=== PATIENT | female | born 1965 | race Caucasian/White ===

== ENCOUNTER 2019-11-21 15:40 | Observation (INO) | payer OTHER ==
[2019-11-21] MEDS ORDERED: PANTOPRAZOLE 40 MG VIAL IVP STA (16:12)
--- NOTE | 2019-11-21 16:13 | ED Physician Documentation ---
PD HPI ABD PAIN - Stated complaint Stated Complaint: FEMALE , DIZZINESS - Chief complaint Chief Complaint: Abd Pain - History obtained from History obtained from: Patient - History of Present Illness Timing - onset: Yesterday (54-year-old woman with history of hypertension and arthritis. She does take naproxen daily for arthritic pain. Since yesterday she has had episodic abdominal discomfort associated with nausea sweats and dizziness as well as dark and tarry stools. She has no history of ulcer disease and has never had an upper and Never had an EGD.) Review of Systems Ten Systems: 10 systems reviewed and negative Constitutional: reports: Sweats. denies: Fever, Chills Cardiac: denies: Chest pain / pressure, Palpitations Respiratory: denies: Dyspnea, Cough PD PAST MEDICAL HISTORY - Past Medical History Past Medical History: Yes Cardiovascular: Hypertension - Present Medications Home Medications: Ambulatory Orders Medication Instructions Recorded Confirmed Fluoxetine HCl 20 mg PO DAILY 11/21/19 11/21/19 Lisinopril/Hydrochlorothiazide 1 tab PO DAILY 11/21/19 11/21/19 [Lisinopril-Hctz 20-25 mg Tab] Naproxen 250 mg PO BID 11/21/19 11/21/19 Simvastatin 10 mg PO QPM 11/21/19 11/21/19 - Allergies Allergies/Adverse Reactions: Allergies Allergy/AdvReac Type Severity Reaction Status Date / Time No Known Drug Allergies Allergy Verified 11/21/19 16:03 - Living Situation Living Situation: reports: With spouse/s.o. - Social History Does the pt smoke?: No Does the pt have substance abuse?: No - Family History Family history: reports: Non contributory (Mom had ulcers) PD ED PE NORMAL - Vitals Vital signs reviewed: Yes - General General: Alert and oriented X 3, No acute distress - HEENT HEENT: PERRL, EOMI - Neck Neck: Supple, no meningeal sign, No bony TTP - Cardiac Cardiac: RRR, No murmur - Respiratory Respiratory: No respiratory distress, Clear bilaterally - Abdomen Abdomen: Soft, Non tender - Rectal Rectal: Other (Done with [employer] present and chaperoning, apparent me hammad from below sent for guaiac to the lab.) - Back Back: No CVA TTP, No spinal TTP - Derm Derm: Normal color, Warm and dry - Extremities Extremities: No edema, No calf tenderness / cord - Neuro Neuro: Alert and oriented X 3, No motor deficit, No sensory deficit, Normal speech Results - Vitals Vitals: Vital Signs - 24 hr 11/21/19 15:56 Temperature 36.5 C Heart Rate 91 Respiratory 16 Rate Blood Pressure 134/76 H O2 Saturation 97 Oxygen O2 Source Room air - Labs Labs: Microbiology 11/21/19 Unknown Occult Blood - Final Stool Laboratory Tests 11/21/19 11/21/19 11/21/19 16:15 16:15 16:15 WBC 13.7 H RBC 3.24 L Hgb 10.0 L Hct 30.4 L MCV 93.8 MCH 30.9 MCHC 32.9 RDW 12.6 Plt Count 315 MPV 10.2 Neut # (Auto) 8.7 H Lymph # (Auto) 4.2 H [place] # (Auto) 0.5 Eos # (Auto) 0.1 Baso # (Auto) 0.1 Absolute Nucleated RBC 0.00 Nucleated RBC % 0.0 PT 12.7 H INR 1.1 Sodium 133 L Potassium 3.3 L Chloride 98 L Carbon Dioxide 25 Anion Gap 10.0 BUN 29 H Creatinine 0.6 Estimated GFR (MDRD) 104 Glucose 107 H Calcium 9.3 Total Bilirubin 0.4 AST 16 ALT 20 Alkaline Phosphatase 50 Total Protein 7.1 Albumin 4.1 Globulin 3.0 Albumin/Globulin Ratio 1.4 Lipase 42 Blood Type Blood Type Recheck Antibody Screen 11/21/19 11/21/19 16:15 16:25 WBC RBC Hgb Hct MCV MCH MCHC RDW Plt Count MPV Neut # (Auto) Lymph # (Auto) [place] # (Auto) Eos # (Auto) Baso # (Auto) Absolute Nucleated RBC Nucleated RBC % PT INR Sodium Potassium Chloride Carbon Dioxide Anion Gap BUN Creatinine Estimated GFR (MDRD) Glucose Calcium Total Bilirubin AST ALT Alkaline Phosphatase Total Protein Albumin Globulin Albumin/Globulin Ratio Lipase Blood Type A POSITIVE Blood Type Recheck A POSITIVE Antibody Screen NEGATIVE PD MEDICAL DECISION MAKING - ED course ED course: This is a 54-year-old woman who takes naproxen every day for her arthritis and now presents with typical symptoms of a bleeding ulcer with melena. She received Protonix in the department. Her hemoglobin is 10, normal indices and elevated BUN suggest this is acute. Case was discussed by phone with the on- call surgeon, Dr. Santiago who will see in consult and a call was placed to the hospitalist for observation. Departure - Departure Disposition: ED Place in Observation Clinical Impression: Upper GI bleed Condition: Stable
[2019-11-21 16:39] LABS: BASOPHILS # (AUTO) 0.1 10^3/uL (0.0-0.1); BASOPHILS % (AUTO) 0.7 %; EOSINOPHILS # (AUTO) 0.1 10^3/uL (0.0-0.7); EOSINOPHILS % (AUTO) 0.5 %; LYMPHOCYTES # (AUTO) 4.2 10^3/uL (1.5-3.5); LYMPHOCYTES % (AUTO) 30.7 %; MEAN CORPUSCULAR HEMOGLOBIN 30.9 pg (27.0-31.0); MEAN CORPUSCULAR HGB CONC 32.9 g/dL (32.0-36.0); MEAN CORPUSCULAR VOLUME 93.8 fL (81.0-99.0); MEAN PLATELET VOLUME 10.2 fL (7.9-10.8); MONOCYTES # (AUTO) 0.5 10^3/uL (0.0-1.0); MONOCYTES % (AUTO) 3.9 %; NEUTROPHILS # (AUTO) 8.7 10^3/uL (1.5-6.6); NEUTROPHILS % (AUTO) 63.5 %; PLT - PLATELET COUNT 315 10^3/uL (130-450); RED BLOOD COUNT 3.24 10^6/uL (4.20-5.40); RED CELL DISTRIBUTION WIDTH 12.6 % (12.0-15.0); WHITE BLOOD COUNT 13.7 x10^3/uL (4.8-10.8)
[2019-11-21 16:45] LABS: INR 1.1 (0.8-1.2); PT - PROTHROMBIN TIME 12.7 secs (9.9-12.6)
[2019-11-21 16:54] LABS: ALBUMIN 4.1 g/dL (3.2-5.5); ALBUMIN/GLOBULIN RATIO 1.4 (1.0-2.2); BILIRUBIN,TOTAL 0.4 mg/dL (0.2-1.0); CALCIUM 9.3 mg/dL (8.5-10.3); CREATININE 0.6 mg/dL (0.4-1.0); TOTAL PROTEIN 7.1 g/dL (6.7-8.2)
[2019-11-21] MEDS ORDERED: NEOSTIGMINE 1 MG/1 ML 10 ML MDV IVP ONE (18:08)
[2019-11-21] MEDS ORDERED: PROPOFOL 200 MG/20 ML VIAL IVP ONE (18:08)
[2019-11-21] MEDS ORDERED: MIDAZOLAM 2 MG/2 ML VIAL IVP ONE (18:08)
[2019-11-21] MEDS ORDERED: SODIUM CHLORIDE FLUSH 0.9% 10 ML SYRINGE IVP PRN (20:18)
--- NOTE | 2019-11-21 20:37 | HISTORY & PHYSICAL EXAMINATION ---
Chief Complaint - Chief Complaint Chief Complaint: melena, dizziness History of Present Illness - Admitted From Admitted From:: [facility] - History Obtained From Records Reviewed: yes History obtained from: patient - History of Present Illness HPI Comment/Other: Patient is a 54 y/o female who presented to the ED with complains of dizziness and dark tarry stools. Her symptoms started yesterday with nausea and light- headedness which subsided after she had a bowel movement. Later in the evening it recurred and persisted for a while. She went to bed for the night. This morning she noticed her stool was tarry black. She denies a previous occurrence of this. She has arthritis in her hands and hips and has been using naproxen daily for years. She denied chest pain, dyspnea, fever or chills. In the ED work up included a CBC which showed a hemoglobin of 10. However in light of her symptoms, she was admitted for further evaluation. Dr Kaylie Santiago was consulted for a possible EGD. History - Past Medical History Cardiovascular: reports: Hypertension Respiratory: reports: None Neuro: reports: Motion sickness GI: reports: GI bleed : reports: None Psych: reports: Depression Musculoskeletal: reports: Osteoarthritis Derm: reports: None - Past Surgical History HEENT: reports: Cataracts Other past surgical history: dental extraction and implants. - Family & Social History Family History: Other family: Diabetes, Type 2 (partenal side) Living Situation: With spouse/s.o. Social History Notes: She smoked about 1.5 ppd for 17 yrs but quit in 1997. No illicit drug use - POLST Patient has POLST: No POLST Status: Full Code Meds/Allgy - Home Medications Home Medications: Ambulatory Orders Medication Instructions Recorded Confirmed Fluoxetine HCl 20 mg PO DAILY 11/21/19 11/21/19 Lisinopril/Hydrochlorothiazide 1 tab PO DAILY 11/21/19 11/21/19 [Lisinopril-Hctz 20-25 mg Tab] Naproxen 250 mg PO BID 11/21/19 11/21/19 Simvastatin 10 mg PO QPM 11/21/19 11/21/19 - Allergies Allergies/Adverse Reactions: Allergies Allergy/AdvReac Type Severity Reaction Status Date / Time No Known Drug Allergies Allergy Verified 11/21/19 16:03 Review of Systems - Constitutional Constitutional: denies: Fatigue, Fever, Chills, Weakness, Poor appetite - Eyes Eyes: denies: Pain, Vision loss - Ears, Nose & Throat Ears, Nose & Throat: denies: Ear pain, Sore throat - Cardiovascular Cariovascular: reports: Lightheadedness. denies: Chest pain, Edema, Syncope - Respiratory Respiratory: denies: Cough, Sputum production, Wheezing, SOB with exertion - Gastrointestinal Gastrointestinal: reports: Black stools, Nausea. denies: Abdominal pain, Abdominal distention, Diarrhea, Vomiting, Reflux/heartburn - Genitourinary Genitourinary: denies: Dysuria, Frequency, Urgency, Hematuria - Musculoskeletal Musculoskeletal: reports: Joint pain. denies: Muscle pain, Back pain - Integumentary Integumentary: denies: Rash, Pruritis, Dryness - Neurological Neurological: reports: Dizziness. denies: General weakness, Focal weakness, Headache - Psychiatric Psychiatric: reports: Depression. denies: Anxiety - Hematologic/Lymphatic Hematologic/Lymphatic: reports: Anemia. denies: Bruising, Petechiae, Blood clots Prior Level of Functionality: She is independent of activities of daily living. She lives with her . Exam - Vital Signs Vital Signs: Vital Signs x48h Temp Pulse Pulse Resp BP BP Pulse Ox 11/21/19 19:01 36.9 C 91 18 128/62 100 11/21/19 18:03 81 15 128/63 100 11/21/19 15:56 36.5 C 91 16 134/76 H 97 - Physical Exam General Appearance: positive: No acute distress, Alert Eyes Bilateral: positive: PERRL, EOMI ENT: positive: ENT inspection nml, No signs of dehydration Neck: positive: No JVD, Trachea midline Respiratory: positive: Chest non-tender, No respiratory distress, Breath sounds nml. negative: Wheezes, Rales, Rhonchi Cardiovascular: positive: Regular rate & rhythm Abdomen: positive: Non-tender, No organomegaly, Nml bowel sounds, No distention. negative: Guarding, Rebound Rectal: positive: Black stool Back: positive: Nml inspection Skin: positive: Color nml, No rash, Warm, Dry. negative: Diaphoresis Extremities: positive: Non-tender, Full ROM, Nml appearance, No pedal edema Neurologic/Psychiatric: positive: Oriented x3, Motor nml, Mood/affect nml Conclusion/Plan - Problem List (1) Upper GI bleed Conclusion/Plan: Likely 2/2 NSAID use Advised to stop using NSAIDS. NPO after midnight. Protonix 40mg IV bid Hgb was 10. Monitor CBC q8hrs X 3 Patient type and screend Will transfuse if hemoglobin drops less than 7 Or patient actively bleeding IV hydration. General Surgery (Dr Santiago) consulted for EGD (2) Hypokalemia Conclusion/Plan: Will replace and recheck Will check Mg in the am (3) Hypertension Conclusion/Plan: On lisinopril/ HCTZ. Currently normotensive Will resume once verified (4) Hyperlipidemia Conclusion/Plan: On simvastatin (5) Depression Conclusion/Plan: On fluoxetine - Lab Results Fish Bones: 11/21/19 16:15 11/21/19 16:15 Core Measures - Anticipated LOS I expect patient to be DC'd or transferred within 96 hours.: Yes - DVT/VTE - Prophylaxis VTE/DVT Device ordered at admit?: Yes VTE/DVT Prophylaxis med ordered at admit?: No
[2019-11-21] MEDS: PANTOPRAZOLE 40 MG VIAL IVP SCH (21:26)
[2019-11-21] MEDS: NS W/20 MEQ KCL 1,000 ML IV SCH (21:30)
[2019-11-22] MEDS: SODIUM CHLORIDE FLUSH 0.9% 10 ML SYRINGE IVP SCH ×3 (00:55→17:08)
[2019-11-22 05:21] LABS: BASOPHILS # (AUTO) 0.1 10^3/uL (0.0-0.1); BASOPHILS % (AUTO) 0.6 %; EOSINOPHILS # (AUTO) 0.2 10^3/uL (0.0-0.7); EOSINOPHILS % (AUTO) 1.9 %; HGB - HEMOGLOBIN 8.1 g/dL (12.0-16.0); LYMPHOCYTES # (AUTO) 3.7 10^3/uL (1.5-3.5); LYMPHOCYTES % (AUTO) 43.6 %; MEAN CORPUSCULAR HEMOGLOBIN 29.7 pg (27.0-31.0); MEAN CORPUSCULAR HGB CONC 31.5 g/dL (32.0-36.0); MEAN CORPUSCULAR VOLUME 94.1 fL (81.0-99.0); MEAN PLATELET VOLUME 10.3 fL (7.9-10.8); MONOCYTES # (AUTO) 0.5 10^3/uL (0.0-1.0); NEUTROPHILS # (AUTO) 4.1 10^3/uL (1.5-6.6); NEUTROPHILS % (AUTO) 47.5 %; PLT - PLATELET COUNT 250 10^3/uL (130-450); RED BLOOD COUNT 2.73 10^6/uL (4.20-5.40); RED CELL DISTRIBUTION WIDTH 12.8 % (12.0-15.0); WHITE BLOOD COUNT 8.6 x10^3/uL (4.8-10.8)
[2019-11-22 05:30] LABS: CALCIUM 8.5 mg/dL (8.5-10.3); CREATININE 0.6 mg/dL (0.4-1.0); MAGNESIUM 2.1 mg/dL (1.7-2.8)
[2019-11-22] MEDS: PANTOPRAZOLE 40 MG VIAL IVP SCH ×2 (09:34→21:54)
[2019-11-22] MEDS: NS W/20 MEQ KCL 1,000 ML IV SCH (10:21)
--- NOTE | 2019-11-22 11:07 | PHARMACY PROGRESS NOTE ---
- Best Possible Medication History Admit Date and Time: 11/21/191806 Processed by: Pharmacy Medication History completed: Yes Patient Interview: Completed Secondary Source(s): Physician records, Pharmacy records, Insurance records As the person ultimately responsible for medication therapy, providers are able to order a medication from an existing home medication list in [facility] via the "Reconcile Routine" prior to Confirmation of that medication by office support associate. Such practice is discouraged except when the physician, in their clinical judgment, deems that a medical need exists for a medication without regard to previous use.
--- NOTE | 2019-11-22 11:49 | CONSULTATION NOTE ---
Referring Provider Name of Referring Provider:: hospitalist Consult Date: 11/22/19 Chief Complaint - Chief Complaint Chief Complaint: UGIB History of Present Illness - History of Present Illness HPI Comment/Other: 54yo F with concern for UGIB due to dark tarry stools over past day as well as lightheadedness and pale appearance. She came in for evaluation and had a hg of 10 but this decreased to 8 on recheck. She remains HDS. Has long history of NSAID use. Never had previous issues with pain, reflux, or evidence of bleeds. History - Past Medical History Cardiovascular: reports: Hypertension Respiratory: reports: None Neuro: reports: Motion sickness GI: reports: GI bleed : reports: None Psych: reports: Depression Musculoskeletal: reports: Osteoarthritis Derm: reports: None - Past Surgical History HEENT: reports: Cataracts Other past surgical history: dental extraction and implants. - Family & Social History Family History: Other family: Diabetes, Type 2 (partenal side) Living Situation: With spouse/s.o. Social History Notes: She smoked about 1.5 ppd for 17 yrs but quit in 1997. No illicit drug use - POLST Patient has POLST: No POLST Status: Full Code Meds/Allgy - Home Medications Home Medications: Ambulatory Orders Medication Instructions Recorded Confirmed Fluoxetine HCl 20 mg PO DAILY 11/21/19 11/21/19 Lisinopril/Hydrochlorothiazide 1 tab PO DAILY 11/21/19 11/21/19 [Lisinopril-Hctz 20-25 mg Tab] Naproxen 250 mg PO BID 11/21/19 11/21/19 Simvastatin 10 mg PO QPM 11/21/19 11/21/19 - Allergies Allergies/Adverse Reactions: Allergies Allergy/AdvReac Type Severity Reaction Status Date / Time No Known Drug Allergies Allergy Verified 11/21/19 16:03 Exam - Vital Signs Reviewed Vital Signs: Yes Vital Signs: Vital Signs x48h Temp Pulse Resp BP Pulse Ox 11/22/19 08:00 36.8 C 81 18 120/58 L 98 11/22/19 04:19 36.4 C L 82 18 119/58 L 98 - Physical Exam Comments/Other: AAO, NAD EOMI, MMM unlabored RA soft, nt/nd MAEW Conclusion and Plan - Lab Results Microbiology Results 11/21/19 Unknown Stool Occult Blood - Final Laboratory Results 11/22/19 04:10: Sodium 137, Potassium 3.2 L, Chloride 103, Carbon Dioxide 28, Anion Gap 6.0, BUN 18, Creatinine 0.6, Estimated GFR (MDRD) 104, Glucose 100, Calcium 8.5, Magnesium 2.1 11/22/19 04:10: WBC 8.6, RBC 2.73 L, Hgb 8.1 L, Hct 25.7 L, MCV 94.1, MCH 29.7, MCHC 31.5 L, RDW 12.8, Plt Count 250, MPV 10.3, Neut # (Auto) 4.1, Lymph # (Auto) 3.7 H, [place] # (Auto) 0.5, Eos # (Auto) 0.2, Baso # (Auto) 0.1, Absolute Nucleated RBC 0.00, Nucleated RBC % 0.0 11/21/19 16:25: Blood Type A POSITIVE, Antibody Screen NEGATIVE 11/21/19 16:15: Blood Type Recheck A POSITIVE 11/21/19 16:15: Sodium 133 L, Potassium 3.3 L, Chloride 98 L, Carbon Dioxide 25, Anion Gap 10.0, BUN 29 H, Creatinine 0.6, Estimated GFR (MDRD) 104, Glucose 107 H, Calcium 9.3, Total Bilirubin 0.4, AST 16, ALT 20, Alkaline Phosphatase 50, Total Protein 7.1, Albumin 4.1, Globulin 3.0, Albumin/Globulin Ratio 1.4, Lipase 42 11/21/19 16:15: PT 12.7 H, INR 1.1 11/21/19 16:15: WBC 13.7 H, RBC 3.24 L, Hgb 10.0 L, Hct 30.4 L, MCV 93.8, MCH 30.9, MCHC 32.9, RDW 12.6, Plt Count 315, MPV 10.2, Neut # (Auto) 8.7 H, Lymph # (Auto) 4.2 H, [place] # (Auto) 0.5, Eos # (Auto) 0.1, Baso # (Auto) 0.1, Absolute Nucleated RBC 0.00, Nucleated RBC % 0.0 - Diagnosis Diagnosis: UGIB - Plan Plan: - diagnostic EGD, possibly therapeutic - all R/B/A discussed and pt wishes to proceed - stop or greatly decrease NSAID use
--- NOTE | 2019-11-22 12:11 | ANESTHESIA ---
Pre-Anesthesia VS, & Labs - Diagnosis Diagnosis UGIB - Procedure EGD Vital Signs: Temp Pulse Resp BP Pulse Ox 36.8 C 81 18 120/58 L 98 11/22/19 08:00 11/22/19 08:00 11/22/19 08:00 11/22/19 08:00 11/22/19 08:00 Height 5 ft 4 in Weight (kg) 93.5 kg Body Mass Index 35.4 - NPO >8 hours - Is Patient ?: No - Lab Results Current Lab Results: Laboratory Tests 11/22/19 04:10: Sodium 137, Potassium 3.2 L, Chloride 103, Carbon Dioxide 28, Anion Gap 6.0, BUN 18, Creatinine 0.6, Estimated GFR (MDRD) 104, Glucose 100, Calcium 8.5, Magnesium 2.1 11/22/19 04:10: WBC 8.6, RBC 2.73 L, Hgb 8.1 L, Hct 25.7 L, MCV 94.1, MCH 29.7, MCHC 31.5 L, RDW 12.8, Plt Count 250, MPV 10.3, Neut # (Auto) 4.1, Lymph # (Auto) 3.7 H, [place] # (Auto) 0.5, Eos # (Auto) 0.2, Baso # (Auto) 0.1, Absolute Nucleated RBC 0.00, Nucleated RBC % 0.0 11/21/19 16:25: Blood Type A POSITIVE, Antibody Screen NEGATIVE 11/21/19 16:15: Blood Type Recheck A POSITIVE 11/21/19 16:15: Sodium 133 L, Potassium 3.3 L, Chloride 98 L, Carbon Dioxide 25, Anion Gap 10.0, BUN 29 H, Creatinine 0.6, Estimated GFR (MDRD) 104, Glucose 107 H, Calcium 9.3, Total Bilirubin 0.4, AST 16, ALT 20, Alkaline Phosphatase 50, Total Protein 7.1, Albumin 4.1, Globulin 3.0, Albumin/Globulin Ratio 1.4, Lipase 42 11/21/19 16:15: PT 12.7 H, INR 1.1 11/21/19 16:15: WBC 13.7 H, RBC 3.24 L, Hgb 10.0 L, Hct 30.4 L, MCV 93.8, MCH 30.9, MCHC 32.9, RDW 12.6, Plt Count 315, MPV 10.2, Neut # (Auto) 8.7 H, Lymph # (Auto) 4.2 H, [place] # (Auto) 0.5, Eos # (Auto) 0.1, Baso # (Auto) 0.1, Absolute Nucleated RBC 0.00, Nucleated RBC % 0.0 Lab results reviewed: Yes Fish Bones: 11/22/19 04:10 11/22/19 04:10 Home Medications and Allergies Home Medications: Ambulatory Orders Fluoxetine HCl 20 mg PO DAILY 11/21/19 Lisinopril/Hydrochlorothiazide [Lisinopril-Hctz 20-25 mg Tab] 1 tab PO DAILY 11/21/19 Naproxen 250 mg PO BID 11/21/19 Simvastatin 10 mg PO QPM 11/21/19 Active Medications Potassium Chloride/Sodium Chloride (Normal Saline 0.9% W/20 Meq Kcl) 1,000 mls @ 100 mls/hr IV .Q10H [facility] Last Admin: 11/22/19 10:21 Dose: 100 mls/hr Pantoprazole Sodium (Protonix) 40 mg IVP BID [facility] Last Admin: 11/22/19 09:34 Dose: 40 mg Sodium Chloride (Normal Saline Flush 0.9%) 10 ml IVP PRN PRN PRN Reason: NEEDED PER PROVIDER ORDERS Last Admin: 11/21/19 21:26 Dose: 10 ml Sodium Chloride (Normal Saline Flush 0.9%) 10 ml IVP 0100,0900,1700 [facility] Last Admin: 11/22/19 08:48 Dose: Not Given Fluoxetine HCl 20 mg PO DAILY 11/21/19 Lisinopril/Hydrochlorothiazide [Lisinopril-Hctz 20-25 mg Tab] 1 tab PO DAILY 11/21/19 Naproxen 250 mg PO BID 11/21/19 Simvastatin 10 mg PO QPM 11/21/19 Allergies/Adverse Reactions: Allergies Allergy/AdvReac Type Severity Reaction Status Date / Time No Known Drug Allergies Allergy Verified 11/21/19 16:03 Anes History & Medical History - Anesthetic History Anesthesia Complications: reports: No previous complications Family history of Anesthesia Complications: Denies Family history of Malignant Hyperthermia: Denies - Medical History Cardiovascular: reports: Hypertension Pulmonary: reports: None Gastrointestinal: reports: GI bleed Urinary: reports: None Neuro: reports: Motion sickness Musculoskeletal: reports: Osteoarthritis Blood Disorders: reports: Anemia Skin: reports: None Smoking Status: Former smoker - Surgical History Eyes Ears Nose Throat (EENT): Cataracts Other Past Surgical History: dental extraction and implants. Exam General: Alert, Oriented x3, Cooperative Dental: WNL Mouth Openin Fingerbreadth Neck Mobility: Normal Mallampati classification: II Thyromental Distance: greater than 6 cm Respiratory: Lungs clear, Normal breath sounds, No respiratory distress Cardiovascular: Regular rate Neurological: Normal speech Mental/Cognitive Status: Alert/Oriented X3, Normal for patient Cognitive Status: Within normal limits Plan Anesthesia Type: MAC Consent for Procedure(s) Verified and Reviewed: Yes Code Status: Attempt Resuscitation ASA classification: 2-Mild systemic disease Is this case an emergency?: No
[2019-11-22] MEDS ORDERED: LACTATED RINGERS 1,000 ML IV ONE (12:35)
--- NOTE | 2019-11-22 13:17 | PROVIDER PROGRESS NOTE ---
Assessment/Plan - Problem List (1) Upper GI bleed Assessment/Plan: No N/V. No further melena. Workup and management underway. (2) Duodenal ulcer Assessment/Plan: This was found at EGD, bx taken, cause was likely the NSAIDs which have been stopped. Protonix bid continues. Will advance diet as tolerated (3) Gastritis Qualifiers: Gastritis bleeding: presence of bleeding unspecified Assessment/Plan: Per EGD today. Continue bid Protonix. Avoid NSAIDs, they have currently been stopped. Dr Salazar did EGD and recommended remain in hospital overnight to watch for worsening Hgb for poss transfusion (4) Anemia due to GI blood loss Assessment/Plan: Watch H/H q12 h. Transfuse if < 7. Start oral iron replacement. (5) Hypokalemia Assessment/Plan: Replace and follow BMP. - Current Meds Current Meds: Current Medications Generic Name Dose Route Start Last Admin Trade Name Freq PRN Reason Stop Dose Admin Potassium Chloride/Sodium Chloride 1,000 mls @ 100 mls/hr 11/21/19 21:00 11/22/19 10:21 Normal Saline 0.9% W/20 Meq Kcl IV 100 mls/hr .Q10H KARYN Administration Pantoprazole Sodium 40 mg 11/21/19 21:00 11/22/19 09:34 Protonix IVP 40 mg BID KARYN Administration Sodium Chloride 10 ml 11/21/19 20:18 11/21/19 21:26 Normal Saline Flush 0.9% IVP 10 ml PRN PRN Administration NEEDED PER PROVIDER ORDERS Sodium Chloride 10 ml 11/22/19 01:00 11/22/19 08:48 Normal Saline Flush 0.9% IVP Not Given 0100,0900,1700 KARYN - Lab Result Fish Bone Diagrams: 11/22/19 13:00 11/22/19 04:10 - Additional Planning My Orders: My Active Orders 11/22/19 10:54 DIET [NPO except Meds] [DIET] 11/22/19 Breakfast Clear Liquid Diet [DIET] Subjective - Subjective Patient Reports: Resting Comfortably, Other (No further crampy lower abdominal pain, as she had when melanotic stool was coming out last night.) Objective Vital Signs: Vital Signs - 24 hr 11/21/19 11/21/19 11/21/19 15:56 18:03 19:01 Temperature 36.5 C 36.9 C Heart Rate 91 81 Heart Rate [ 91 Brachial] Respiratory 16 15 18 Rate Blood Pressure 134/76 H 128/63 Blood Pressure [Left Brachial artery] Blood Pressure 128/62 [Right Brachial artery] O2 Saturation 97 100 100 11/21/19 11/21/19 11/22/19 21:52 23:56 04:19 Temperature 36.5 C 36.9 C 36.4 C L Heart Rate Heart Rate [ 80 84 82 Brachial] Respiratory 20 18 18 Rate Blood Pressure Blood Pressure [Left Brachial artery] Blood Pressure 122/59 L 118/52 L 119/58 L [Right Brachial artery] O2 Saturation 99 96 98 11/22/19 11/22/19 11/22/19 08:00 12:38 12:50 Temperature 36.8 C 36.8 C 36.9 C Heart Rate 82 Heart Rate [ 81 86 Brachial] Respiratory 18 18 16 Rate Blood Pressure Blood Pressure 96/64 [Left Brachial artery] Blood Pressure 120/58 L [Right Brachial artery] O2 Saturation 98 98 99 11/22/19 13:00 Temperature Heart Rate Heart Rate [ 81 Brachial] Respiratory 18 Rate Blood Pressure Blood Pressure 104/54 L [Left Brachial artery] Blood Pressure [Right Brachial artery] O2 Saturation 97 Oxygen O2 Source Room air I&O (Last 24 Hrs): Intake and Output Totals x24h 11/20/19 11/21/19 11/22/19 23:59 23:59 23:59 Intake Total 220 1000 Output Total 300 500 Balance -80 500 General: Alert, Oriented x3 HEENT: Mucous membr. moist/pink Neck: Supple, No JVD Neuro: Alert, Non Focal Cardiovascular: Regular rate Respiratory: No respiratory distress Abdomen: Soft Extremities: No edema - Results Results: Laboratory Results WBC 8.6 x10^3/uL (4.8-10.8) 11/22/19 04:10 RBC 2.73 10^6/uL (4.20-5.40) L 11/22/19 04:10 Hgb 8.1 g/dL (12.0-16.0) L 11/22/19 04:10 Hct 25.7 % (37.0-47.0) L 11/22/19 04:10 MCV 94.1 fL (81.0-99.0) 11/22/19 04:10 MCH 29.7 pg (27.0-31.0) 11/22/19 04:10 MCHC 31.5 g/dL (32.0-36.0) L 11/22/19 04:10 RDW 12.8 % (12.0-15.0) 11/22/19 04:10 Plt Count 250 10^3/uL (130-450) 11/22/19 04:10 MPV 10.3 fL (7.9-10.8) 11/22/19 04:10 Neut # (Auto) 4.1 10^3/uL (1.5-6.6) 11/22/19 04:10 Lymph # (Auto) 3.7 10^3/uL (1.5-3.5) H 11/22/19 04:10 [place] # (Auto) 0.5 10^3/uL (0.0-1.0) 11/22/19 04:10 Eos # (Auto) 0.2 10^3/uL (0.0-0.7) 11/22/19 04:10 Baso # (Auto) 0.1 10^3/uL (0.0-0.1) 11/22/19 04:10 Absolute Nucleated RBC 0.00 x10^3/uL 11/22/19 04:10 Nucleated RBC % 0.0 /100WBC 11/22/19 04:10 PT 12.7 secs (9.9-12.6) H 11/21/19 16:15 INR 1.1 (0.8-1.2) 11/21/19 16:15 Sodium 137 mmol/L (135-145) 11/22/19 04:10 Potassium 3.2 mmol/L (3.5-5.0) L 11/22/19 04:10 Chloride 103 mmol/L (101-111) 11/22/19 04:10 Carbon Dioxide 28 mmol/L (21-32) 11/22/19 04:10 Anion Gap 6.0 (6-13) 11/22/19 04:10 BUN 18 mg/dL (6-20) 11/22/19 04:10 Creatinine 0.6 mg/dL (0.4-1.0) 11/22/19 04:10 Estimated GFR (MDRD) 104 (>89) 11/22/19 04:10 Glucose 100 mg/dL (70-100) 11/22/19 04:10 Calcium 8.5 mg/dL (8.5-10.3) 11/22/19 04:10 Magnesium 2.1 mg/dL (1.7-2.8) 11/22/19 04:10 Total Bilirubin 0.4 mg/dL (0.2-1.0) 11/21/19 16:15 AST 16 IU/L (10-42) 11/21/19 16:15 ALT 20 IU/L (10-60) 11/21/19 16:15 Alkaline Phosphatase 50 IU/L (42-121) 11/21/19 16:15 Total Protein 7.1 g/dL (6.7-8.2) 11/21/19 16:15 Albumin 4.1 g/dL (3.2-5.5) 11/21/19 16:15 Globulin 3.0 g/dL (2.1-4.2) 11/21/19 16:15 Albumin/Globulin Ratio 1.4 (1.0-2.2) 11/21/19 16:15 Lipase 42 U/L (22-51) 11/21/19 16:15 Blood Type A POSITIVE 11/21/19 16:25 Blood Type Recheck A POSITIVE 11/21/19 16:15 Antibody Screen NEGATIVE 11/21/19 16:25
[2019-11-22 13:20] LABS: BASOPHILS # (AUTO) 0.1 10^3/uL (0.0-0.1); BASOPHILS % (AUTO) 0.7 %; EOSINOPHILS # (AUTO) 0.1 10^3/uL (0.0-0.7); EOSINOPHILS % (AUTO) 1.4 %; HGB - HEMOGLOBIN 7.5 g/dL (12.0-16.0); LYMPHOCYTES # (AUTO) 3.2 10^3/uL (1.5-3.5); LYMPHOCYTES % (AUTO) 44.6 %; MEAN CORPUSCULAR HEMOGLOBIN 31.6 pg (27.0-31.0); MEAN CORPUSCULAR HGB CONC 32.5 g/dL (32.0-36.0); MEAN CORPUSCULAR VOLUME 97.5 fL (81.0-99.0); MEAN PLATELET VOLUME 10.2 fL (7.9-10.8); MONOCYTES # (AUTO) 0.4 10^3/uL (0.0-1.0); MONOCYTES % (AUTO) 5.7 %; NEUTROPHILS # (AUTO) 3.4 10^3/uL (1.5-6.6); PLT - PLATELET COUNT 236 10^3/uL (130-450); RED BLOOD COUNT 2.37 10^6/uL (4.20-5.40); RED CELL DISTRIBUTION WIDTH 13.1 % (12.0-15.0); WHITE BLOOD COUNT 7.2 x10^3/uL (4.8-10.8)
--- NOTE | 2019-11-22 15:38 | MISCELLANEOUS PROVIDER NOTE ---
Miscellaneous Provider Note - - Note: SURGERY S/P EGD for UGIB. Gastritis and minimal esophagitis, most likely culprit is a duodenal ulcer with evidence of recent bleed. Biopsies sent. OK to resume liquid diet. Continue to monitor Hg until stablizes. Cont' PPI daily on discharge and avoid NSAIDs and blood thinners. FU in surgery office and/or PCP in 2-3 months to discuss response to meds and indications for repeat endoscopy.
[2019-11-22 21:06] LABS: HGB - HEMOGLOBIN 7.4 g/dL (12.0-16.0)
[2019-11-22] MEDS ORDERED: POTASSIUM CHLORIDE 20 MEQ TABLET PO STA (21:39)
[2019-11-23 06:13] LABS: BASOPHILS % (AUTO) 0.6 %; EOSINOPHILS # (AUTO) 0.2 10^3/uL (0.0-0.7); EOSINOPHILS % (AUTO) 2.2 %; HGB - HEMOGLOBIN 7.7 g/dL (12.0-16.0); LYMPHOCYTES # (AUTO) 2.7 10^3/uL (1.5-3.5); LYMPHOCYTES % (AUTO) 39.8 %; MEAN CORPUSCULAR HEMOGLOBIN 30.2 pg (27.0-31.0); MEAN CORPUSCULAR HGB CONC 31.4 g/dL (32.0-36.0); MEAN CORPUSCULAR VOLUME 96.1 fL (81.0-99.0); MEAN PLATELET VOLUME 9.6 fL (7.9-10.8); MONOCYTES # (AUTO) 0.4 10^3/uL (0.0-1.0); MONOCYTES % (AUTO) 5.5 %; NEUTROPHILS # (AUTO) 3.5 10^3/uL (1.5-6.6); NEUTROPHILS % (AUTO) 51.6 %; PLT - PLATELET COUNT 257 10^3/uL (130-450); RED BLOOD COUNT 2.55 10^6/uL (4.20-5.40); RED CELL DISTRIBUTION WIDTH 13.2 % (12.0-15.0); WHITE BLOOD COUNT 6.9 x10^3/uL (4.8-10.8)
[2019-11-23 06:21] LABS: CALCIUM 8.3 mg/dL (8.5-10.3); CREATININE 0.8 mg/dL (0.4-1.0)
[2019-11-23] MEDS: SODIUM CHLORIDE FLUSH 0.9% 10 ML SYRINGE IVP SCH ×2 (07:57→08:33)
[2019-11-23] MEDS ORDERED: FERROUS GLUCONATE 324 MG TABLET PO SCH (08:00)
[2019-11-23] MEDS: PANTOPRAZOLE 40 MG VIAL IVP SCH (08:33)
--- NOTE | 2019-11-23 10:48 | Discharge Plan ---
Discharge Plan Problem Reviewed?: Yes Disposition: Home, Self Care Condition: Stable Prescriptions: Ferrous Gluconate 240 mg PO DAILY #30 tablet Pantoprazole [Protonix] 40 mg PO BID #60 tablet Diet: Soft Activity Restrictions: Activity as Tolerated Shower Restrictions: No Driving Restrictions: No Instruction Topics: Ulcer Bleeding Peptic Tx, H Pylori and Ulcers, Diet Soft Dc, Gastric Duodenal Ulcer Ch Health Concerns: You were in prolonged Observation here to manage significant bleeding from your gastrointestinal tract. The upper endoscopy found a duodenal ulcer which looked like it had been bleeding, and also gastritis (inflammation of the stomach), likely caused by use of Naprosyn. Biopsies were done and the H. pylori result will take several days to return. You are being discharged on Protonix and on oral Iron replacement; it usually takes the bone marrow 3 months to recover to normal hemoglobin level. You should remain on a soft diet for 2 to 4 weeks, and avoid scratchy and spicy foods. You need to avoid aspirin and medications like Naprosyn and Ibuprofen for years! You may resume any other medications such as Fluoxitine and Simvastatin. You should see your PCP in about 1 week for a hospital follow-up, blood pressure check to be instructed when to resume your blood pressure medicines and blood test regarding the hemoglobin and get H.pylori results. You may return to work with some restrictions: you should not be doing heavy lifting, moving furniture or moving your office, standing for prolonged periods of time, walking for prolonged periods of time. You may go to work if you are sitting and you may do short walks. The duration of these restrictions will be estimated to be 2 weeks, but your PCP can adjust this if needed. Plan of Treatment: As above. The new prescriptions were electronically sent to your pharmacy. Care Goals: Improvement in symptoms and stabilization are the goals. Assessment: The patient, and at bedside, understand and are agreeable with the plan. Additional Instructions or Follow Up instructions: If you have new or worsening symptoms, call your PCP for advice or come to the ER. No Smoking: If you smoke, Please STOP! Call for help. Follow-up with: Maricel Rod MD [Physician No Access] -
--- NOTE | 2019-11-23 12:56 | DISCHARGE SUMMARY ---
Discharge Summary Admit Date: 11/21/19 Discharge Date: 11/23/19 Discharging Provider: Dr Yolanda Novak Primary Care Provider: Dr Shahla Rod Code Status: Attempt Resuscitation Condition at Discharge: Stable Discharge Disposition: 01 Home, Self Care - DIAGNOSES Admission Diagnoses: (1) Upper GI bleed (2) Hypokalemia (3) Hypertension (4) Hyperlipidemia (5) Depression Discharge Diagnoses with Status of Each Condition: See below - HPI History of Present Illness: From the admission H&P of Dr Prince Cerda: Patient is a 54 y/o female who presented to the ED with complains of dizziness and dark tarry stools. Her symptoms started yesterday with nausea and light- headedness which subsided after she had a bowel movement. Later in the evening it recurred and persisted for a while. She went to bed for the night. This morning she noticed her stool was tarry black. She denies a previous occurrence of this. She has arthritis in her hands and hips and has been using naproxen daily for years. She denied chest pain, dyspnea, fever or chills. In the ED work up included a CBC which showed a hemoglobin of 10. However in light of her symptoms, she was admitted for further evaluation. General Surgery was consulted for an EGD. - CONSULTS | PROCEDURES Consultations: Dr Trudy Salazar Procedures: EGD on 11/22/19 - HOSPITAL COURSE Hospital Course: (1) Upper GI bleed There was no further melena since admission. She was on clear liquids then NPO for the upper endoscopy. She then tolerated a soft diet and was advised to follow this type of diet for several weeks. The General Surgeon recommended to avoid NSAIDs and blood thinners, to have follow-up in surgery office and/or with her PCP at the 2-3 month time, to discuss response to meds and indications for repeat endoscopy. (2) Duodenal ulcer This was found at EGD, and biopsies taken. The cause was likely the [employer] Naprosyn use which has been stopped. She was treated with Protonix iv bid and discharged to take oral bid Protonix for at least a month. The H.pylori results will need to be followed and managed by the PCP. (3) Gastritis Per EGD. This was managed as above for the duodenal ulcer. (4) Anemia due to GI blood loss The hemoglobin and hematocrit were monitored by blood test every 12 hours. The admission Hgb was 10 >> 8>> 7.4>> 7.7>> and was 8 at discharge. She never dr opped below a Hgb of 7, to get a blood transfusion. She was started oral iron replacement and discharged on this. 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 (5) Hypokalemia Low Potassium was related to her anti-hypertensive medication containing a diuretic. This was replaced and we followed the BMP. (6) History of HTN Since hospitalization, her BP meds were on hold because she had "soft" blood pressures of 98/47, 120/70. This was likely due to her blood loss hypovolemia. She was not orthostatic. She was told to remain off her anti-hypertensives until she has her PCP follow-up appointment and is OKd to restart them. (7) Depression Her home medication may be continued. (8) Hyperlipidemia Her home medication may be continued. - ALLERGIES Allergies/Adverse Reactions: Allergies Allergy/AdvReac Type Severity Reaction Status Date / Time No Known Drug Allergies Allergy Verified 11/21/19 16:03 - MEDICATIONS Home Medications: Ambulatory Orders Medication Instructions Recorded Confirmed Fluoxetine HCl 20 mg PO DAILY 11/21/19 11/21/19 Simvastatin 10 mg PO QPM 11/21/19 11/21/19 Ferrous Gluconate 240 mg PO DAILY #30 tablet 11/23/19 Pantoprazole [Protonix] 40 mg PO BID #60 tablet 11/23/19 - PHYSICAL EXAM AT DISCHARGE General Appearance: positive: No acute distress, Alert Eyes Bilateral: positive: Normal inspection, EOMI ENT: positive: ENT inspection nml, No signs of dehydration Neck: positive: Nml inspection, No JVD Respiratory: positive: No respiratory distress, Breath sounds nml Cardiovascular: positive: Regular rate & rhythm, No murmur Abdomen: positive: Non-tender, Nml bowel sounds, No distention Skin: positive: Pallor Extremities: positive: Non-tender, No pedal edema Neurologic/Psychiatric: positive: Oriented x3, Other (Non-focal) - LABS Result Diagrams: 11/23/19 12:38 11/23/19 06:00 - DIAGNOSTIC IMAGING Diagnostic Imaging Results: Final report reviewed - FOLLOW UP Follow Up: See PCP in 5-7 days for hospital follow-up. - TIME SPENT Time Spent in Discharge (Minutes): 45
[2019-11-23 13:22] VITALS: BP 148/64
== END 2019-11-23 14:05 | disposition home or self-care (01) ==
LOC: ED 15:40 → MS2 18:07
PROVIDERS: ADMIT Internal Medicine; ATTEND Internal Medicine
PROC: 0DB98ZX Excision of Duodenum, Via Natural or Artificial Opening Endoscopic, Diagnostic (ICD-10-PCS; principal; 2019-11-21)
PROC: 0DB78ZX Excision of Stomach, Pylorus, Via Natural or Artificial Opening Endoscopic, Diagnostic (ICD-10-PCS; 2019-11-21)
PROC: 0DB48ZX Excision of Esophagogastric Junction, Via Natural or Artificial Opening Endoscopic, Diagnostic (ICD-10-PCS; 2019-11-21)
DX: K26.4 Chronic or unspecified duodenal ulcer with hemorrhage (principal); D50.0 Iron deficiency anemia secondary to blood loss (chronic); K29.50 Unspecified chronic gastritis without bleeding; K20.9 Esophagitis, unspecified; E87.6 Hypokalemia; I10 Essential (primary) hypertension; F32.9 Major depressive disorder, single episode, unspecified; E78.5 Hyperlipidemia, unspecified; Z79.1 Long term (current) use of non-steroidal anti-inflammatories (NSAID); M19.90 Unspecified osteoarthritis, unspecified site; Z87.891 Personal history of nicotine dependence
CPT/HCPCS: 36415; 43239; 80048; 80053; 82272; 83690; 83735; 85014; 85018; 85025; 85610; 86850; 86900; 86901; 96365; 96366; 96375; 96376; 99285; A9270; G0378; J7120

== ENCOUNTER 2024-01-29 19:48 | Emergency (ER) | payer OTHER ==
[2024-01-29 19:58] VITALS: BP 136/72; O2SAT 98
--- NOTE | 2024-01-29 20:43 | XRAY Report ---
PROCEDURE: Neck Soft Tissue INDICATIONS: foreign body TECHNIQUE: 2 views of the neck were acquired. COMPARISON: None FINDINGS: Airway: The airway appears patent. Soft tissues: Prevertebral soft tissues are normal in thickness. The epiglottis and aryepiglottic f olds appear normal. No soft tissue gas. No radiodense foreign bodies are seen. Bones: No suspicious bony lesions. Visualized cervical spine is normally aligned. IMPRESSION: No radiodense foreign bodies projecting over the soft tissue or airway are identified. Reviewed by: Susan Dumont MD on 01/29/2024 8:39 PM PDT Approved by: Susan Dumont MD on 01/29/2024 8:39 PM PDT Station ID: [id number]
--- NOTE | 2024-01-29 21:06 | ED Physician Documentation ---
History of Present Illness - Stated complaint Stated Complaint: THROAT PX,FOREIGN OBJECT - Chief complaint Chief Complaint: Heent - History obtained from History obtained from: Patient - History of Present Illness Timing: Today Pain level max: 0 Pain level now: 0 - Additonal information Additional information: 58-year-old female presents to the emergency department stating that she was eating fish tonight and feels like there is a fishbone stuck in the left side of her throat. No difficulty speaking, swallowing. No difficulty breathing. Nothing makes it better or worse. She states she feels like the left side of her throat is swollen. Review of Systems Constitutional: denies: Fever, Chills GI: denies: Vomiting, Diarrhea Skin: denies: Rash Musculoskeletal: denies: Neck pain, Back pain Neurologic: denies: Headache PD PAST MEDICAL HISTORY - Past Medical History Past Medical History: Yes Cardiovascular: Hypertension Respiratory: None Neuro: Motion sickness GI: GI bleed : None Psych: Depression Musculoskeletal: Osteoarthritis Derm: None - Past Surgical History Past Surgical History: Yes HEENT: Cataracts - Present Medications Home Medications: Ambulatory Orders Medication Instructions Recorded Confirmed Fluoxetine HCl 20 mg PO DAILY 11/21/19 01/29/24 Simvastatin 10 mg PO QPM 11/21/19 01/29/24 Pantoprazole [Protonix] 40 mg PO BID #60 tablet 11/23/19 01/29/24 - Allergies Allergies/Adverse Reactions: Allergies Allergy/AdvReac Type Severity Reaction Status Date / Time No Known Drug Allergies Allergy Verified 01/29/24 21:04 - Social History Does the pt smoke?: No Smoking Status: Never smoker Does the pt drink ETOH?: Yes Does the pt have substance abuse?: No - Immunizations Immunizations are current?: Yes - POLST Patient has POLST: No POLST Status: Full Code PD ED PE NORMAL - Vitals Vital signs reviewed: Yes - General General: Alert and oriented X 3, No acute distress - HEENT HEENT: PERRL, Moist mucous membranes, Pharynx benign, Other (no wheezing, no stridor, normal phonation) - Neck Neck: Supple, no meningeal sign - Cardiac Cardiac: RRR, Strong equal pulses - Respiratory Respiratory: No respiratory distress, Clear bilaterally - Abdomen Abdomen: Soft, Non tender, Non distended - Derm Derm: Warm and dry - Neuro Neuro: Alert and oriented X 3 - Psych Psych: Normal mood, Normal affect Results - Vitals Vitals: Vital Signs - 24 hr 01/29/24 19:52 Temperature 37 C Heart Rate 73 Respiratory 18 Rate Blood Pressure 136/72 H O2 Saturation 98 Oxygen O2 Source Room air - Rads (name of study) soft tissue neck xray Relevant Findings:: Final report received, See rad report PD Medical Decision Making - ED course Complexity details: reviewed results, re-evaluated patient, considered differential, d/w patient ED course: 58-year-old female presents to the emergency department with what feels like a possible fishbone stuck in the left side of her throat tonight. They were eating rock fish and a small pin bone may have been swallowed. Soft tissue x-ray does not show any foreign body, though possible that the fishbone may not be seen on plain film x-ray. Nebulized lidocaine was then administered to the patient and a small flexible bronchoscope was then placed down the posterior portion of her throat. Do not visualize any obvious foreign body with this. We did discuss a CT scan for this, after discussion the patient would like to see how she feels overnight and if she is still having symptoms in the morning or if her symptoms worsen, she will return for CT scan and possible endoscopy at that point. She is tolerating secretions without any difficulty. Speaking and swallowing without any difficulty. Her symptoms did improve with nebulized lidocaine and oral Maalox with lidocaine. Also given a dose of dexamethasone for potential swelling. No stridor. No wheezing. Normal phonation. Patient counseled regarding signs and symptoms for which I believe and urgent re- evaluation would be necessary. Patient with good understanding of and agreement to plan and is comfortable going home at this time This document was made in part using voice recognition software. While efforts are made to proofread this document, sound alike and grammatical errors may occur. Departure - Departure Disposition: 01 Home, Self Care Clinical Impression: Foreign body sensation, throat Condition: Good Instructions: ED Foreign Body Swallowed Adult Follow-Up: MIKE MONSON, [Primary Care Provider] - Within 1 week Comments: Your x-ray does not show any evidence of a retained fishbone in your throat, however these are not always visible on x-ray. The camera placed on your throat tonight does not show any visible bone at this time either. As we discussed this may be due to a scratch in your throat, the symptoms should resolve in approximately 24 to 36 hours. If you worsen including difficulty speaking or swallowing, increasing swelling to the throat, or other new or worrisome symptoms, return for repeat evaluation, consideration of endoscopy and/or CT scan. Forms: PCP List Discharge Date/Time: 01/29/24 21:45
[2024-01-29] MEDS: LIDOCAINE TOPICAL 4% 50 ML BOTTLE MM STA (21:15)
[2024-01-29] MEDS: MAG HYDROX/AL HYDROX/SIMETH 30 ML UDC PO STA (22:04)
[2024-01-29] MEDS: DEXAMETHASONE 10 MG/ML VIAL PO STA (22:04)
[2024-01-29] MEDS: LIDOCAINE VISCOUS 2% 15 ML UDC MM STA (22:04)
[2024-01-29] MEDS: CHERRY SYRUP 10 ML UDC PO ONE (22:05)
== END 2024-01-29 21:45 | disposition home or self-care (01) ==
LOC: ED 19:48
DX: R09.A2 Foreign body sensation, throat (principal); I10 Essential (primary) hypertension
CPT/HCPCS: 70360; 99283; 99285; A9270